=== PATIENT | female | born 1970 | race African-American/Black ===

== ENCOUNTER 2017-03-13 09:42 | Outpatient (CLI) | payer OTHER ==
--- NOTE | 2017-03-13 10:58 | Mammography Report ---
Screening mammogram: Postoperative left breast for cancer. Routine views demonstrate surgical retraction of the inferior left breast. With this exception the fibroglandular pattern on the left is generally unremarkable as is that on the right. Comparison to prior exam in March 2015 shows no interval change in either breast. No evidence of recurrent cancer. CAD used. Impression: Stable breast pattern post left breast surgery for cancer. Recommendation: Annual mammogram followup. BI-RADS CATEGORY: 2 = Benign ACR BI-RADS MAMMOGRAPHIC CODES: 0 = Needs additional imaging evaluation; 1 = Negative; 2 = Benign; 3 = Probably benign; 4 = Suspicious; 5 = Malignant; 6 = Known biopsy-proven malignancy COMMENT: 1. Dense breast tissue, i.e., adenosis, fibrocystic changes, etc., may obscure an underlying neoplasm. 2. Approximately 10% of cancers are not detected with mammography. 3. A negative mammography report should not delay biopsy if a clinically suspicious mass is present.
== END 2017-03-13 09:43 | disposition home or self-care (01) ==
LOC: MAMMO 09:42
DX: Z12.31 Encounter for screening mammogram for malignant neoplasm of breast (principal)
CPT/HCPCS: 77067; G0202

== ENCOUNTER 2018-03-20 10:26 | Outpatient (CLI) | payer OTHER ==
--- NOTE | 2018-03-20 16:03 | Mammography Report ---
BILATERAL DIGITAL SCREENING MAMMOGRAM WITH CAD: 03/20/18 10:26:00 CLINICAL: Routine screening.Breast cancer survivor status post left partial mastectomy . COMPARISON:03/13/17 FINDINGS: The breasts are heterogeneously dense, which may obscure small masses. The left breast is smaller than the right with stable postsurgical scar. No mass, architectural distortion or suspicious calcifications. IMPRESSION: No mammographic evidence of malignancy. BI-RADS CATEGORY: 2 -- Benign RECOMMENDATION: Routine mammographic screening in one year. COMMENT: Patient follow-up letters are generated via our [employer] application.
== END 2018-03-20 10:27 | disposition home or self-care (01) ==
LOC: MAMMO 10:26
DX: Z12.31 Encounter for screening mammogram for malignant neoplasm of breast (principal)
CPT/HCPCS: 77067

== ENCOUNTER 2019-04-08 08:32 | Outpatient (CLI) | payer OTHER ==
--- NOTE | 2019-04-08 09:20 | Mammography Report ---
DIGITAL DIAGNOSTIC MAMMOGRAM WITH CAD, -- 04/08/2019 INDICATION: Breast cancer survivor status post left partial mastectomy. TECHNIQUE: Digital mammographic imaging was performed. This examination was interpreted with the benefit of Computer-aided Detection analysis. COMPARISON: 03/20/2018 FINDINGS: Breast Density: The breasts are heterogeneously dense, which may obscure small masses. There is no evidence of dominant mass, suspicious calcifications or architectural distortion in eithe r breast. The left breast is smaller than the right. IMPRESSION: No mammographic evidence of malignancy. Follow up recommendation: Routine yearly BI-RADS Category 2: Benign. A "normal" or negative report should not discourage follow up or biopsy of a clinically significant f inding. A written summary of these findings will be mailed to the patient. The patient will be entered into a mammography reporting system which will generate a reminder letter for the patient's next appointmen t at the appropriate interval. According to the [employer], yearly mammograms are recommended starting at age 40 and continuing as long as a woman is in good health. Breast MRI is recommended for women with an mary jane roximately 20-25% or greater lifetime risk of breast cancer, including women with a strong family his tory of breast or ovarian cancer and women who have been treated for Hodgkin's disease. Signer Name: Fredy Rock MD Signed: 04/08/2019 9:15 AM Workstation Name: [id number]
== END 2019-04-08 08:33 | disposition home or self-care (01) ==
LOC: MAMMO 08:32
PROVIDERS: ATTEND Internal Medicine Hematology & Oncology
DX: C50.412 Malignant neoplasm of upper-outer quadrant of left female breast (principal)
CPT/HCPCS: 77066